=== PATIENT | female | born 1995 ===

== ENCOUNTER 2024-03-08 06:30 | Outpatient (RCR) | payer MEDICAID, SELFPAY | END 2024-04-06 23:59 | disposition home or self-care (01) | LOC: MPT 06:30 | PROVIDERS: PCP Family Medicine; Visit Provider Nurse Practitioner Family | DX: M54.9 Dorsalgia, unspecified (principal); G89.29 Other chronic pain | CPT/HCPCS: 97162 ==

== ENCOUNTER 2024-04-07 06:00 | Outpatient (RCR) | payer MEDICAID, SELFPAY | END 2024-05-07 23:59 | disposition home or self-care (01) | LOC: MPT 06:00 | PROVIDERS: PCP Family Medicine; Visit Provider Nurse Practitioner Family | DX: M54.9 Dorsalgia, unspecified (principal); G89.29 Other chronic pain | CPT/HCPCS: 97110; G0283 ==